=== PATIENT | male | born 1970 | race African-American/Black ===

== ENCOUNTER 2020-12-27 07:09 | Day surgery (SDC) | payer OTHER ==
[2020-12-25 15:06] VITALS: BMI 53.5
[2020-12-27] MEDS ORDERED: PROPOFOL 20 ML ONE (08:32)
[2020-12-27] MEDS ORDERED: MIDAZOLAM HCL 2 MG/2 ML SINGLE DOSE VIAL ONE (08:32)
[2020-12-27] MEDS ORDERED: oxyCODONE HCL 5 MG TABLET PO PRN (08:53)
[2020-12-27] MEDS ORDERED: ONDANSETRON 4 MG/2 ML VIAL IVPUSH PRN (08:53)
[2020-12-27] MEDS ORDERED: LACTATED RINGERS SOLUTION 1,000 ML IV SCH (09:00)
[2020-12-27] MEDS ORDERED: BUPIVACAINE HCL 50 ML ONE (09:09)
[2020-12-27] MEDS ORDERED: BUPIVACAINE HCL/PF 2.5 MG/ML - 30 ML VIAL IJ ONE (09:35)
[2020-12-27] MEDS ORDERED: ceFAZolin SODIUM 1 GM VIAL ONE (09:52)
[2020-12-27] MEDS ORDERED: ONDANSETRON 4 MG/2 ML VIAL ONE (09:55)
[2020-12-27] MEDS ORDERED: DEXAMETHASONE SOD PHOSPHATE 4 MG/1 ML VIAL ONE (09:55)
[2020-12-27] MEDS ORDERED: PHENYLEPHRINE HCL 10 MG/1 ML SINGLE DOSE VIAL ONE (09:56)
[2020-12-27] MEDS ORDERED: EPHEDRINE SULFATE/0.9% NACL/PF 50 MG/10 ML SYRINGE NR ONE (10:01)
[2020-12-27] MEDS ORDERED: BUPIVACAINE HCL/PF 0.25% (2.5MG/ML) 10 ML VIAL IJ ONE (10:18)
[2020-12-27 12:07] VITALS: TEMP 97.8
[2020-12-27 12:11] VITALS: BP 140/87; PULSE 76
== END 2020-12-27 12:35 | disposition home or self-care (01) ==
LOC: FASU 07:09
PROVIDERS: ATTEND Orthopaedic Surgery
PROC: 0SBD4ZZ Excision of Left Knee Joint, Percutaneous Endoscopic Approach (ICD-10-PCS; 2020-12-27)
PROC: 0SBD4ZZ Excision of Left Knee Joint, Percutaneous Endoscopic Approach (ICD-10-PCS; 2020-12-27)
PROC: 0SBD4ZZ Excision of Left Knee Joint, Percutaneous Endoscopic Approach (ICD-10-PCS; 2020-12-27)
PROC: 0SBD4ZZ Excision of Left Knee Joint, Percutaneous Endoscopic Approach (ICD-10-PCS; principal; 2020-12-27 10:02)
DX: S83.242A Other tear of medial meniscus, current injury, left knee, initial encounter (principal); S83.282A Other tear of lateral meniscus, current injury, left knee, initial encounter; M65.862 Other synovitis and tenosynovitis, left lower leg; M94.8X6 Other specified disorders of cartilage, lower leg; X58.XXXA Exposure to other specified factors, initial encounter; Y93.9 Activity, unspecified; Y92.9 Unspecified place or not applicable; Y99.9 Unspecified external cause status
CPT/HCPCS: 88304-TC; 93005; 94760